=== PATIENT | female | born 1980 | race Caucasian/White ===

== ENCOUNTER 2018-01-06 11:36 | Emergency (ER) | payer OTHER ==
[~2018-01-06] VITALS: Ht 162.6 cm; Wt 64.4 kg
[~2018-01-06 11:36] MED LIST: HYDROCODONE-AP1 EAC6 PO; IBUPROFEN 800800 M1 PO; MECLIZINE HCL25 MG PO; NAPROSYN500 MG PO; NORCO 5-325 TA1 EACH PO; VICODIN 5-3001 EACH PO; VISTARIL 25 MG25 M1 PO; ZOFRAN4 MG PO
[2018-01-06] MEDS ORDERED: ANTIVERT25 MG PO (12:19)
[2018-01-06] MEDS ORDERED: ROBAXIN 750 MG750 M1 PO (12:28)
[2018-01-06 13:16] VITALS: BP 109/76
== END 2018-01-06 13:15 | disposition home or self-care (01) ==
LOC: M.ERS 11:36
DX: S16.1XXA Strain of muscle, fascia and tendon at neck level, initial encounter (principal); S29.012A Strain of muscle and tendon of back wall of thorax, initial encounter; V49.3XXA Car occupant (driver) (passenger) injured in unspecified nontraffic accident, initial encounter; Y93.89 Activity, other specified; Y92.410 Unspecified street and highway as the place of occurrence of the external cause; Y99.8 Other external cause status

== ENCOUNTER 2021-04-27 17:52 | Emergency (ER) | payer OTHER ==
[~2021-04-27] VITALS: Ht 162.6 cm; Wt 61.2 kg
[~2021-04-27 17:52] MED LIST changes: +ANTIVERT25 MG PO; +ROBAXIN 750 MG750 M1 PO
[2021-04-27] MEDS ORDERED: ADIPEX-P37.5 MG PO (18:23)
[2021-04-27 19:21] LABS: INFLUENZA A ANTIGEN Negative (Negative); INFLUENZA B ANTIGEN Negative (Negative)
[2021-04-27 19:42] VITALS: BP 147/94
--- NOTE | 2021-04-28 10:20 | EKG ---
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 : 1980 Requested By: Valentino Mchugh Order Number: [id number] MD: Jean-Pierre Chua Measurements Intervals [place] Rate: 76 P: 50 WA: 138 QRS: 89 QRSD: 82 T: 58 QT: 380 QTc: 428 Interpretive Statements Sinus rhythm Low voltage, precordial leads Baseline wander in lead(s) II,aVR,aVF No previous ECG available for comparison Electronically Signed On 04-28-2021 10:20:25 CARPET RENOVATOR by Jean-Pierre Chua [email or web address] <ELECTRONICALLY SIGNED> By: Jean-Pierre Chua MD, [facility] 04/28/21 1020 1836 1836 Jean-Pierre Chua MD, [facility] /EPI
== END 2021-04-27 19:42 | disposition home or self-care (01) ==
LOC: M.ERS 17:52
PROVIDERS: Physician Assistant
DX: U07.1 COVID-19 (principal); Z90.710 Acquired absence of both cervix and uterus; Z98.890 Other specified postprocedural states; Z79.899 Other long term (current) drug therapy; Z91.018 Allergy to other foods